=== PATIENT | female | born 1955 | race Two or more races ===

== ENCOUNTER 2022-08-11 18:20 | Inpatient (IN) | payer BC ==
[~2022-08-11] VITALS: Ht 162.6 cm; Wt 54.4 kg
--- NOTE | 2022-08-11 18:28 | NUR ---
DR. BLOOD AT BEDSIDE
[2022-08-11] MEDS ORDERED: IV NS 0.9% 1,000 ML BAG IV ONE (19:00)
[2022-08-11] MEDS ORDERED: ONDANSETRON HCL/PF 4 MG/2 ML VIAL IVP ONE (19:00)
--- NOTE | 2022-08-11 19:05 | NUR ---
iv established. 20g LAC
--- NOTE | 2022-08-11 19:06 | NUR ---
blood drawn and sent to lab
[2022-08-11] MEDS ORDERED: ONDANSETRON HCL/PF 4 MG/2 ML VIAL ONE (19:13)
--- NOTE | 2022-08-11 19:26 | NUR ---
patient taken to ct via teresa
[2022-08-11 19:50] LABS: BASOPHILS % (AUTO) 0.6 % (0.0-2.0); EOSINOPHILS % (AUTO) 0.3 % (0.0-6.0); HEMATOCRIT 39 % (33-45); HEMOGLOBIN 12.6 g/dL (11.5-14.8); LYMPHOCYTES % (AUTO) 16.5 % (20.0-44.0); MEAN CORPUSCULAR HGB CONC 33 g/dl (31.0-36.0); MEAN CORPUSCULAR VOLUME 95 fL (82-100); MONOCYTES % (AUTO) 5.4 % (2.0-12.0); NEUTROPHILS % (AUTO) 77.2 % (43.0-81.0); PLATELET COUNT (AUTO) 145 K/uL (150-450); RED BLOOD CELL COUNT(AUTO) 4.08 MIL/uL (4.0-5.2); WHITE BLOOD COUNT (AUTO) 2.6 K/uL (4.3-11.0)
[2022-08-11 19:51] LABS: LYMPHOCYTES # (AUTO) 0.4 K/uL (0.8-4.8); MONOCYTES # (AUTO) 0.1 K/uL (0.1-1.30)
[2022-08-11 20:04] LABS: CALCIUM, SERUM 9.2 mg/dL (8.5-10.1); CARBON DIOXIDE 23 mmol/L (21-32); CHLORIDE 101 mmol/L (98-107); CREATININE 0.6 mg/dL (0.6-1.3); GLUCOSE 154 mg/dL (74-106); POTASSIUM 3.9 mmol/L (3.5-5.1); SODIUM SERUM 132 mmol/L (136-145); UREA NITROGEN, BLOOD 7 mg/dL (7-18)
--- NOTE | 2022-08-11 20:06 | NUR ---
URINE COLLECTED AND SENT TO LAB
[2022-08-11 20:14] LABS: ALANINE AMINOTRANSFERASE 19 U/L (12-78); ALBUMIN 3.7 g/dL (3.4-5.0); ALKALINE PHOSPHATASE 89 U/L (46-116); ASPARTATE AMINOTRANSFERASE 33 U/L (15-37); BILIRUBIN,DIRECT 0.1 mg/dL (0.0-0.2); BILIRUBIN,TOTAL 0.4 mg/dL (0.2-1.0); TOTAL PROTEIN, SERUM 6.9 g/dL (6.4-8.2)
[2022-08-11 20:30] LABS: BILIRUBIN,URINE NEGATIVE (NEGATIVE); COLOR,URINE YELLOW (YELLOW); LEUKOCYTE ESTERASE ,URINE NEGATIVE (NEGATIVE); NITRITE, URINE NEGATIVE (NEGATIVE); PH,URINE 7.5 (5.0-8.0); PROTEIN,URINE NEGATIVE (NEGATIVE); UGLUCOSE NEGATIVE (NEGATIVE); UROBILINOGEN,URINE 0.2 EU/dL (0.2)
[2022-08-11 20:41] LABS: BACTERIA,URINE 1+ /HPF (None Seen); SQUAMOUS EPITHELIAL CELL,UR Few /HPF (None Seen); WBC,URINE 0-2 /HPF (0-3)
--- NOTE | 2022-08-11 21:11 | NUR ---
COVID ANTIGEN SWAB COLLECTED AND SENT TO LAB
--- NOTE | 2022-08-11 21:18 | NUR ---
UPDATED [facility] ([facility]) [phone]
[2022-08-11] MEDS ORDERED: MECLIZINE HCL 25 MG TABLET ONE (21:29)
[2022-08-11] MEDS ORDERED: LORAZEPAM INJ 2 MG/ML VIAL IV ONE (21:30)
[2022-08-11] MEDS ORDERED: MECLIZINE HCL 12.5 MG TABLET PO ONE (21:30)
[2022-08-11] MEDS ORDERED: LORAZEPAM INJ 2 MG/ML VIAL ONE (21:30)
[2022-08-11] MEDS ORDERED: ZOLPIDEM TARTRATE 5 MG TABLET PO PRN (22:00)
[2022-08-11] MEDS ORDERED: MAG HYDROX/AL HYDROX/SIMETH 30 ML UDC PO PRN (22:00)
[2022-08-11] MEDS ORDERED: ONDANSETRON HCL/PF 4 MG/2 ML VIAL IVP PRN (22:00)
[2022-08-11] MEDS ORDERED: Z GUARD REMEDY 4 OZ OINT TP PRN (22:00)
[2022-08-11] MEDS ORDERED: MAGNESIUM HYDROXIDE 30 ML UDC PO PRN (22:00)
--- NOTE | 2022-08-11 22:39 | NUR ---
REPORT GIVEN TO FELICITAS STRICKLAND RN FOR DIANA
--- NOTE | 2022-08-11 22:52 | NUR ---
PT TRANSFERRING TO EM 114-2 VIA HOSPITAL PROTOCOL. VSS. ALL BELONGINGS WITH PT. FAMILY AWARE
--- NOTE | 2022-08-11 23:20 | NUR ---
MS TIRE REPAIRMAN NOTE RECEIVED REPORT FROM PENNY AQUINO AND PATIENT WAS BROUGHT TO THE UNIT AT AROUND [facility]00 VIA STRETCHER, ACCOMPANIED BY HER SISTER. PATIENT WAS BROUGHT TO THE HOSPITAL D/T DIZZINESS AND EMESIS X2 PRIOR TO ADMISSION. DIRECTED TO ROOM 114-2. PATIENT IS ALERT AND ORIENTED X4. ABLE TO MAKE NEEDS KNOWN. AFEBRILE AND NOT IN ANY FORM OF ACUTE DISTRESS. BREATHING EVEN AND NON LABORED. STILL C/O DIZZINESS. EXPLAINED ADMISSION PROCESS WHICH INCLUDES SKIN ASSESSMENT WHICH THE PATIENT AGREED. NOTED WITH IV ACCESS ON LAC 20G-SL. SKIN IS INTACT. SAFETY MEASURES IN PLACE. KEPT BED IN LOCKED AND IN LOW POSITION. SIDE RAILS UP X2. ADVISED TO USE THE CALL LIGHT WHEN IN NEED OF ASSISTANCE. PROVIDED BEDPAN AND ADVISED TO USE IT FOR THE MEANTIME D/T UNSTEADY GAIT AND VERBALIZED UNDERSTANDING. PROVIDED DIM LIGHT TO REDUCE STIMULI. ALL BELONGINGS CHECKED AND PROPERLY DOCUMENTED TOGETHER WITH ASSIGNED SENIOR INSIGHT MANAGER. PATIENT PLACED ON CLEAR LIQUID DIET ORDERED.
[2022-08-12 00:11] VITALS: BP_SYST 145; BP_SYST 148; BP_DIAS 63; BP_DIAS 77
[2022-08-12] MEDS: IV NS 0.9% 1,000 ML IV PRN ×2 (00:23→16:17)
[2022-08-12 04:00] VITALS: BP 146/62
--- NOTE | 2022-08-12 06:30 | NUR ---
MS RN CLOSING NOTE PATIENT IN BED, ASLEEP BUT EASY TO AROUSE AND RESPONSIVE. AFEBRILE AND NOT IN ANY FORM OF ACUTE DISTRESS. BREATHING EVEN AND NON LABORED. NO C/O PAIN OR DISCOMFORT THROUGHOUT THE SHIFT. NO EPISODE OF EMESIS OR NAUSEA. MAINTAINED ON CLEAR LIQUID DIET ORDERED. WITH IV ACCESS ON L AC 20G RUNNING WITH NS AT 75ML/HR. UNABLE TO COLLECT STOOL SAMPLE DURING THE SHIFT. SAFETY MEASURES IN PLACE. KEPT BED IN LOCKED AND IN LOW POSITION. SIDE RAILS UP X2. ADVISED TO USE THE CALL LIGHT WHEN IN NEED OF ASSISTANCE. ALL NURSING NEEDS ATTENDED. ENDORSED TO INCOMING SHIFT FOR CONTINUITY OF CARE.
--- NOTE | 2022-08-12 07:00 | NUR ---
RN OPENING NOTE PATIENT IN BED, ASLEEP BUT EASY TO AROUSE A/O X4. AFEBRILE AND NOT IN ANY FORM OF ACUTE DISTRESS, BREATHING EVEN. IV ACCESS ON L AC 20G RUNNING WITH NS AT 75ML/HR. SAFETY MEASURES IMPLEMENTED, BED IN LOCKED AND IN LOW POSITION. SIDE RAILS UP X2, CALL LIGHT WITHIN REACH, WILL CONTINUE TO MONITOR.
[2022-08-12 07:30] LABS: BASOPHILS % (AUTO) 0.8 % (0.0-2.0); EOSINOPHILS % (AUTO) 0.9 % (0.0-6.0); HEMATOCRIT 36 % (33-45); HEMOGLOBIN 11.8 g/dL (11.5-14.8); LYMPHOCYTES # (AUTO) 1.1 K/uL (0.8-4.8); MEAN CORPUSCULAR HGB CONC 33 g/dl (31.0-36.0); MEAN CORPUSCULAR VOLUME 95 fL (82-100); MONOCYTES # (AUTO) 0.4 K/uL (0.1-1.30); MONOCYTES % (AUTO) 12.4 % (2.0-12.0); NEUTROPHILS # (AUTO) 1.6 K/uL (1.8-8.9); NEUTROPHILS % (AUTO) 50.9 % (43.0-81.0); PLATELET COUNT (AUTO) 152 K/uL (150-450); RED BLOOD CELL COUNT(AUTO) 3.78 MIL/uL (4.0-5.2); WHITE BLOOD COUNT (AUTO) 3.1 K/uL (4.3-11.0)
[2022-08-12 07:35] LABS: CALCIUM, SERUM 8.5 mg/dL (8.5-10.1); CREATININE 0.6 mg/dL (0.6-1.3); PHOSPHORUS 3.3 mg/dL (2.5-4.9); POTASSIUM 3.5 mmol/L (3.5-5.1)
[2022-08-12 08:00] VITALS: BP 150/75
[2022-08-12] MEDS: ACETAMINOPHEN 325 MG TABLET PO PRN ×2 (08:14→19:59)
[2022-08-12] MEDS: CEFTRIAXONE 1 G in IV D5W 50 ML IV SCH ×2 (09:30→10:31)
[2022-08-12] MEDS: MECLIZINE HCL 12.5 MG TABLET PO PRN ×2 (11:20→19:59)
[2022-08-12] MEDS ORDERED: CIPR-263 PO (11:22)
[2022-08-12] MEDS ORDERED: LISI2.5T2 PO (11:22)
[2022-08-12] MEDS ORDERED: MECL-182 PO (11:22)
[2022-08-12] MEDS: LISINOPRIL (5MG) 5 MG TABLET PO SCH (12:08)
[2022-08-12 16:00] VITALS: BP 150/75
--- NOTE | 2022-08-12 18:59 | NUR ---
RN CLOSING NOTE PATIENT IS AWAKE, A/O X4. AFEBRILE AND NOT IN ANY FORM OF ACUTE DISTRESS, BREATHING EVEN. IV ACCESS RIGHT FA 22G, RUNNING WITH NS AT 75ML/HR. FAMILY AT BEDSIDE. SAFETY MEASURES IMPLEMENTED, BED IN LOCKED AND IN LOW POSITION. SIDE RAILS UP X2, CALL LIGHT WITHIN REACH, WILL CONTINUE TO MONITOR.
[2022-08-12 20:00] VITALS: BP_SYST 130; BP_SYST 136; BP_DIAS 68; BP_DIAS 76
--- NOTE | 2022-08-12 20:00 | NUR ---
RN MS OPENING NOTE RECEIVED PTS IN BED AWAKE A/O X4 ON R/A .SON AT BEDSIDE UPDATED WITH PTS CONDITION AND MEDICATION , V/S STABLE AFEBRILE AND NOT IN ANY FORM OF ACUTE DISTRESS, BREATHING EVEN. IV ACCESS RIGHT FA 22G, RUNNING WITH NS AT 75ML/HR.DUE MEDS GIVEN ORDERED NO ASE NOTED CALL LIGHT WITHIN REACH ,ALL NEEDS ATTENDED TOO. SAFETY MEASURES IMPLEMENTED, BED IN LOCKED AND IN LOW POSITION. SIDE RAILS UP X2, CALL LIGHT WITHIN REACH, WILL CONTINUE TO MONITOR.
[2022-08-12] MEDS ORDERED: CLONIDINE HCL 0.1 MG TABLET PO PRN (21:00)
[2022-08-13] VITALS: BP 145/53
[2022-08-13 04:00] VITALS: BP 145/63
[2022-08-13 06:02] LABS: BASOPHILS % (AUTO) 1.2 % (0.0-2.0); HEMATOCRIT 34 % (33-45); HEMOGLOBIN 11.2 g/dL (11.5-14.8); LYMPHOCYTES # (AUTO) 1.3 K/uL (0.8-4.8); LYMPHOCYTES % (AUTO) 38.8 % (20.0-44.0); MEAN CORPUSCULAR HGB CONC 33 g/dl (31.0-36.0); MEAN CORPUSCULAR VOLUME 94 fL (82-100); MONOCYTES # (AUTO) 0.3 K/uL (0.1-1.30); MONOCYTES % (AUTO) 9.1 % (2.0-12.0); NEUTROPHILS # (AUTO) 1.5 K/uL (1.8-8.9); NEUTROPHILS % (AUTO) 43.9 % (43.0-81.0); PLATELET COUNT (AUTO) 143 K/uL (150-450); RED BLOOD CELL COUNT(AUTO) 3.59 MIL/uL (4.0-5.2); WHITE BLOOD COUNT (AUTO) 3.3 K/uL (4.3-11.0)
[2022-08-13] MEDS: IV NS 0.9% 1,000 ML IV PRN (06:04)
[2022-08-13 06:21] LABS: CALCIUM, SERUM 8.5 mg/dL (8.5-10.1); CREATININE 0.7 mg/dL (0.6-1.3); MAGNESIUM 1.9 mg/dL (1.8-2.4); PHOSPHORUS 3.2 mg/dL (2.5-4.9); POTASSIUM 3.9 mmol/L (3.5-5.1)
--- NOTE | 2022-08-13 06:57 | NUR ---
MS RN CLOSING NOTE PATIENT IS AWAKE, A/O X4. AFEBRILE AND NOT IN ANY FORM OF ACUTE DISTRESS, BREATHING EVEN. IV ACCESS RIGHT FA 22G, RUNNING WITH NS AT 75ML/HR. FAMILY AT BEDSIDE. SAFETY MEASURES IMPLEMENTED, BED IN LOCKED AND IN LOW POSITION. SIDE RAILS UP X2, CALL LIGHT WITHIN REACH, WILL ENDORSE TO RN DAY SHIFT FOR CONTINUITY OF CARE
--- NOTE | 2022-08-13 07:17 | NUR ---
RN OPENING NOTE PATIENT IN BED, AWAKE, VERBALLY RESPONSIVE, COOPERATIVE, AFEBRILE AND NOT IN ANY FORM OF ACUTE DISTRESS, BREATHING EVEN. IV ACCESS ON L AC 20G RUNNING WITH NS AT 75ML/HR. SAFETY MEASURES IMPLEMENTED, BED IN LOCKED AND IN LOW POSITION. CALL LIGHT WITHIN REACH, WILL CONTINUE TO MONITOR.
[2022-08-13] MEDS: ACETAMINOPHEN 325 MG TABLET PO PRN (07:55)
[2022-08-13] MEDS: LISINOPRIL (5MG) 5 MG TABLET PO SCH (08:09)
[2022-08-13 12:00] VITALS: BP 123/69
[2022-08-13] MEDS ORDERED: LISI2.5T2 PO (12:03)
[2022-08-13] MEDS ORDERED: CIPR-263 PO (12:03)
[2022-08-13] MEDS ORDERED: MECL-159 PO (12:03)
[2022-08-13] MEDS: MECLIZINE HCL 12.5 MG TABLET PO PRN (13:10)
--- NOTE | 2022-08-13 13:30 | NUR ---
PATIENT D/C IN STABLE CONDITION, ON RA SAT 98%, NO DISTRESS NOTED, TAKEN HOME BY FAMILY. D/C INSTRUCTION/ EDUCATION PROVIDED, VERBALIZED UNDERSTANDING/ DEMONSTRATING BACK.
== END 2022-08-13 13:25 | disposition home or self-care (01) | DRG 866 ==
LOC: ER 18:50 → MEDSG1 22:37
PROVIDERS: ADMIT Nurse Practitioner Acute Care; ATTEND Nurse Practitioner Acute Care
DX: B34.9 Viral infection, unspecified (principal); E87.1 Hypo-osmolality and hyponatremia; H81.10 Benign paroxysmal vertigo, unspecified ear; I10 Essential (primary) hypertension; M19.90 Unspecified osteoarthritis, unspecified site; D72.819 Decreased white blood cell count, unspecified
CPT/HCPCS: 36415; 70450-TC; 71045-TC; 80048-TC; 80076-TC; 81001; 83690-TC; 83735-TC; 84100-TC; 84484-TC; 85025-TC; 85730-TC; 97112-TC; 97116-TC; 97530-TC; A4223; C9803; G0378; J0696; J2060; J2405; J7030; J7060; J8597